=== PATIENT | male | born 1970 | race Two or more races ===

== ENCOUNTER 2020-11-27 21:53 | Inpatient (IN) | payer MEDICAID, OTHER ==
[~2020-11-27] VITALS: Ht 172.7 cm; Wt 85.8 kg
[2020-11-27] MEDS ORDERED: LABETALOL HCL 5 MG/ML 4ML SYRINGE IV ONE (22:15)
[2020-11-27] MEDS ORDERED: ASPirin 81 mg TAB PO ONE ×3 (22:15→23:15)
[2020-11-27 22:33] LABS: Basophils # (auto) 0 10 ^3/uL (0-0.2); Basophils % (auto) 0.4 % (0.0-2.0); Eosinophils # (auto) 0.2 10 ^3/uL (0-0.8); Eosinophils % (auto) 1.5 % (0.0-7.0); Hematocrit 48.4 % (41.0-53.0); Hemoglobin 16.6 g/dL (13.5-17.5); Lymphocytes # (auto) 3.4 10 ^3/uL (0.4-5.4); Mean Corpuscular Hemoglobin 31.4 pg (28.0-32.0); Mean Corpuscular Hgb Conc. 34.4 g/dL (32.0-36.0); Mean Corpuscular Volume 91.4 fL (80.0-100.0); Monocytes # (auto) 0.9 10 ^3/uL (0-1.3); Monocytes % (auto) 8.8 % (0.0-12.0); Neutrophils # (auto) 5.8 10 ^3/uL (1.6-8.6); Neutrophils % (auto) 56.3 % (37.0-80.0); Nucleated Red Blood Cells % 0.1 %; Red Cell Distribution Width 13.3 % (11.8-14.3); White Blood Cell 10.4 10^3/uL (4.4-10.8)
[2020-11-27 22:47] LABS: INR 1.08 (0.9-1.15); Partial Thromboplastin Time 26.9 sec (23.0-31.2)
[2020-11-27 22:52] LABS: Calcium 9.1 mg/dL (8.5-10.1); Potassium 3.8 mmol/L (3.5-5.1)
[2020-11-27 22:56] LABS: Bilirubin, Total 0.8 mg/dL (0.2-1.0); Total Protein 7.6 g/dL (6.4-8.2)
[2020-11-27] MEDS ORDERED: CLOPIDOGREL BISULFATE 75 MG TAB PO ONE (23:15)
[2020-11-27] MEDS ORDERED: CLOPIDOGREL 300 MG TAB ONE (23:22)
[2020-11-27] MEDS ORDERED: ENOXAPARIN SOD 100 MG/1 ML SYRINGE SC SCH (23:30)
[2020-11-28 00:33] LABS: Urine Bacteria NONE SEEN /hpf (None Seen); Urine Blood Negative /uL (Negative); Urine Hyaline Cast FEW /lpf (0 - 2); Urine Mucus FEW (None Seen); Urine Specific Gravity 1.039 (1.001-1.035); Urine WBC 1 /hpf (0 - 3)
[2020-11-28] MEDS ORDERED: ONDANSETRON HCL 4 MG/2 ML VIAL IV PRN (03:45)
[2020-11-28] MEDS ORDERED: METOPROLOL TARTRATE 25 MG TAB PO ONE (03:45)
[2020-11-28] MEDS ORDERED: MORPHINE SULFATE INJECTION 2 MG/ML SYRG IV PRN (03:45)
[2020-11-28] MEDS ORDERED: DEXTROSE (50%) 50ML SYRG IV PRN (03:45)
[2020-11-28] MEDS ORDERED: NITROGLYCERIN 0.4 MG SL TAB SL PRN (03:45)
[2020-11-28] MEDS ORDERED: IOHEXOL 350 MG/ML 100ML IJ ONE (03:52)
[2020-11-28] MEDS: ACCU-CHEK COMFORT CURVE STRIP VI SCH ×4 (06:12→23:42)
[2020-11-28] MEDS: InsuLIN REG 1unit/0.01ml Soln (100units/ml) SC SCH ×4 (06:12→23:54)
[2020-11-28] MEDS ORDERED: dilTIAZem 25 MG/5 ML VIAL IV ONE (06:45)
[2020-11-28] MEDS ORDERED: cloNIDine HCL 0.1 MG TAB PO PRN (07:15)
[2020-11-28] MEDS: METOPROLOL TARTRATE 25 MG TAB PO SCH ×3 (09:23→22:03)
[2020-11-28] MEDS ORDERED: ENOXAPARIN SOD 40 MG/0.4 ML SYRINGE SC SCH (10:00)
[2020-11-28] MEDS: ASPirin 81 mg TAB PO SCH (11:43)
[2020-11-28] MEDS: FAMOTIDINE 20 MG TAB PO SCH ×2 (11:44→22:03)
[2020-11-28] MEDS ORDERED: FUROSEMIDE 20 MG/2 ML VIAL IV ONE (14:15)
[2020-11-28] MEDS: ENOXAPARIN SOD 80 MG/0.8ML SYRINGE SC SCH (21:55)
[2020-11-28 22:00] VITALS: BP 129/95
[2020-11-28] MEDS ORDERED: METOPROLOL TARTRATE 25 MG TAB PO SCH (22:00)
[2020-11-28] MEDS: ATORVASTATIN 20 MG TAB PO SCH (22:03)
[2020-11-29] MEDS ORDERED: DIGOXIN (250MCG/ML) 2 ML AMPULE IV ONE (00:15)
[2020-11-29 04:53] VITALS: BP 150/95
[2020-11-29] MEDS: ACCU-CHEK COMFORT CURVE STRIP VI SCH ×3 (05:45→18:13)
[2020-11-29] MEDS: InsuLIN REG 1unit/0.01ml Soln (100units/ml) SC SCH ×3 (05:45→18:14)
[2020-11-29 07:10] LABS: Basophils # (auto) 0.1 10 ^3/uL (0-0.2); Basophils % (auto) 0.5 % (0.0-2.0); Eosinophils # (auto) 0.1 10 ^3/uL (0-0.8); Eosinophils % (auto) 1.5 % (0.0-7.0); Hematocrit 47.6 % (41.0-53.0); Hemoglobin 16.5 g/dL (13.5-17.5); Lymphocytes # (auto) 2.5 10 ^3/uL (0.4-5.4); Lymphocytes % (auto) 25.6 % (10.0-50.0); Mean Corpuscular Hemoglobin 31.4 pg (28.0-32.0); Mean Corpuscular Hgb Conc. 34.7 g/dL (32.0-36.0); Mean Corpuscular Volume 90.4 fL (80.0-100.0); Neutrophils # (auto) 6.1 10 ^3/uL (1.6-8.6); Neutrophils % (auto) 62.4 % (37.0-80.0); Nucleated Red Blood Cells % 0.1 %; Red Blood Cells 5.26 10^6/uL (4.5-5.90); Red Cell Distribution Width 13.2 % (11.8-14.3); White Blood Cell 9.7 10^3/uL (4.4-10.8)
[2020-11-29 07:31] LABS: Potassium 3.4 mmol/L (3.5-5.1)
[2020-11-29 07:38] LABS: Albumin 3.5 g/dL (3.4-5.0); BUN/Creatinine Ratio 25.3; Bilirubin, Total 1.2 mg/dL (0.2-1.0); Calcium 8.6 mg/dL (8.5-10.1); Total Protein 6.9 g/dL (6.4-8.2)
[2020-11-29 08:41] VITALS: BP 157/98
[2020-11-29] MEDS: FAMOTIDINE 20 MG TAB PO SCH ×2 (10:00→21:43)
[2020-11-29] MEDS: METOPROLOL TARTRATE 25 MG TAB PO SCH (10:00)
[2020-11-29] MEDS: ASPirin 81 mg TAB PO SCH (10:00)
[2020-11-29] MEDS: ENOXAPARIN SOD 80 MG/0.8ML SYRINGE SC SCH (10:00)
[2020-11-29] MEDS ORDERED: POTASSIUM EFFERVESENT TAB 25 MEQ GT ONE (11:00)
[2020-11-29] MEDS ORDERED: MIDAZOLAM HCL 2MG/2ML 2ml VIAL (1mg/ml) ONE ×2 (11:49→12:23)
[2020-11-29] MEDS ORDERED: AMIODARONE HCL (50 MG/ ML) 3 ML VIAL IV ONE (11:59)
[2020-11-29] MEDS ORDERED: SODIUM CHL 0.9% 0 ML ONE (11:59)
[2020-11-29] MEDS ORDERED: ANGIOMAX 250 MG VIAL IV ONE (12:22)
[2020-11-29] MEDS ORDERED: fentaNYL CITRATE 100 MCG/2 ML VL ONE (12:23)
[2020-11-29] MEDS ORDERED: LIDOCAINE 1% HCL (LOCAL ANESTH.) INJ 20ML MDV IJ ONE (13:33)
[2020-11-29] MEDS ORDERED: METOPROLOL SUCCINATE XL 50 MG TAB PO ONE (14:00)
[2020-11-29] MEDS: FUROSEMIDE 20 MG/2 ML VIAL IV SCH (16:17)
[2020-11-29 16:52] VITALS: BP 123/90
[2020-11-29] MEDS ORDERED: RIVAROXABAN 20 MG TAB PO SCH (18:00)
[2020-11-29] MEDS: AMIODARONE HCL 200 MG TAB PO SCH (21:42)
[2020-11-29] MEDS: ATORVASTATIN 20 MG TAB PO SCH (21:43)
[2020-11-29 22:00] VITALS: BP 135/89
[2020-11-30] MEDS: InsuLIN REG 1unit/0.01ml Soln (100units/ml) SC SCH ×3 (00:38→12:41)
[2020-11-30] MEDS: ACCU-CHEK COMFORT CURVE STRIP VI SCH ×3 (00:42→12:00)
[2020-11-30 05:00] VITALS: BP 147/86
[2020-11-30 05:42] LABS: Basophils # (auto) 0.1 10 ^3/uL (0-0.2); Basophils % (auto) 0.6 % (0.0-2.0); Eosinophils # (auto) 0.1 10 ^3/uL (0-0.8); Eosinophils % (auto) 1.2 % (0.0-7.0); Hematocrit 46.4 % (41.0-53.0); Hemoglobin 16.1 g/dL (13.5-17.5); Lymphocytes # (auto) 2.3 10 ^3/uL (0.4-5.4); Lymphocytes % (auto) 19.4 % (10.0-50.0); Mean Corpuscular Hemoglobin 31.5 pg (28.0-32.0); Mean Corpuscular Hgb Conc. 34.7 g/dL (32.0-36.0); Mean Corpuscular Volume 90.7 fL (80.0-100.0); Monocytes # (auto) 1.3 10 ^3/uL (0-1.3); Monocytes % (auto) 11.2 % (0.0-12.0); Neutrophils # (auto) 7.9 10 ^3/uL (1.6-8.6); Neutrophils % (auto) 67.6 % (37.0-80.0); Nucleated Red Blood Cells % 0.1 %; Red Blood Cells 5.12 10^6/uL (4.5-5.90); Red Cell Distribution Width 13.1 % (11.8-14.3); White Blood Cell 11.7 10^3/uL (4.4-10.8)
[2020-11-30 06:00] LABS: BUN/Creatinine Ratio 24.6; Calcium 8.5 mg/dL (8.5-10.1); Potassium 3.4 mmol/L (3.5-5.1)
[2020-11-30 08:00] VITALS: BP 150/104
[2020-11-30 09:00] VITALS: BP 150/104
[2020-11-30] MEDS: ASPirin 81 mg TAB PO SCH (09:29)
[2020-11-30] MEDS: FUROSEMIDE 20 MG/2 ML VIAL IV SCH (09:29)
[2020-11-30] MEDS: FAMOTIDINE 20 MG TAB PO SCH (09:30)
[2020-11-30] MEDS: AMIODARONE HCL 200 MG TAB PO SCH (09:30)
[2020-11-30] MEDS ORDERED: POTASSIUM EFFERVESENT TAB 25 MEQ GT SCH (10:00)
[2020-11-30] MEDS ORDERED: METOPROLOL SUCCINATE XL 50 MG TAB PO SCH (10:00)
[2020-11-30 12:36] VITALS: BP 136/103
[2020-11-30] MEDS ORDERED: FURO1TAB33 PO (12:54)
[2020-11-30] MEDS ORDERED: ASPI1CHW15 PO (12:54)
[2020-11-30] MEDS ORDERED: RIV20T PO (12:54)
[2020-11-30] MEDS ORDERED: METO-6 PO (12:54)
[2020-11-30] MEDS ORDERED: ATOR20TA50 PO (12:54)
[2020-11-30 14:43] VITALS: BP 136/103
[2020-12-01] MEDS ORDERED: ASPirin 81 mg TAB PO SCH (10:00)
[2021-04-09] MEDS ORDERED: AMIO200T33 PO (15:54)
[2021-04-09] MEDS ORDERED: DAPA1TAB4 PO (15:54)
[2021-04-09] MEDS ORDERED: ASPI-543 PO (15:54)
[2021-04-09] MEDS ORDERED: POTA-220 PO (16:03)
[2021-04-09] MEDS ORDERED: RIV20T PO (16:03)
== END 2020-11-30 16:30 | disposition home or self-care (01) | DRG 192 ==
LOC: ER 21:53 → TELE-EAST 21:53 → TELE 11-28 03:40 → TELE-EAST 11-28 20:53
PROVIDERS: ADMIT Nurse Practitioner; ATTEND Internal Medicine Pulmonary Disease
PROC: 4A023N7 Measurement of Cardiac Sampling and Pressure, Left Heart, Percutaneous Approach (ICD-10-PCS; principal; 2020-11-29)
PROC: 5A2204Z Restoration of Cardiac Rhythm, Single (ICD-10-PCS; 2020-11-29)
PROC: B2111ZZ Fluoroscopy of Multiple Coronary Arteries using Low Osmolar Contrast (ICD-10-PCS; 2020-11-29)
PROC: B2151ZZ Fluoroscopy of Left Heart using Low Osmolar Contrast (ICD-10-PCS; 2020-11-29)
DX: I50.23 Acute on chronic systolic (congestive) heart failure (principal); I21.4 Non-ST elevation (NSTEMI) myocardial infarction; J96.01 Acute respiratory failure with hypoxia; I48.91 Unspecified atrial fibrillation; E11.9 Type 2 diabetes mellitus without complications; Z20.822 Contact with and (suspected) exposure to COVID-19; I42.0 Dilated cardiomyopathy
CPT/HCPCS: 36415; 71045; 71275; 80048; 80053; 81001; 82962; 83880; 84443; 84484; 85025; 85379; 85610; 85730; 87426; 93005; 93306; 93458; 96372; 96374; 96375; 99152; 99291; G0378; J1815; J2001; J2250; J3490

== ENCOUNTER 2020-11-30 22:35 | Inpatient (IN) | payer MEDICAID ==
[~2020-11-30] VITALS: Ht 172.7 cm; Wt 93.2 kg
[~2020-11-30 22:35] MED LIST: ASPI1CHW15 PO; ATOR20TA50 PO; FURO1TAB33 PO; METO-6 PO; RIV20T PO
[2020-11-30 23:51] LABS: Basophils # (auto) 0.1 10 ^3/uL (0-0.2); Basophils % (auto) 0.6 % (0.0-2.0); Eosinophils # (auto) 0.1 10 ^3/uL (0-0.8); Eosinophils % (auto) 1.2 % (0.0-7.0); Hematocrit 44.4 % (41.0-53.0); Hemoglobin 15.2 g/dL (13.5-17.5); Lymphocytes # (auto) 2.7 10 ^3/uL (0.4-5.4); Mean Corpuscular Hemoglobin 31.1 pg (28.0-32.0); Mean Corpuscular Hgb Conc. 34.3 g/dL (32.0-36.0); Mean Corpuscular Volume 90.8 fL (80.0-100.0); Monocytes # (auto) 1.5 10 ^3/uL (0-1.3); Neutrophils # (auto) 7.4 10 ^3/uL (1.6-8.6); Neutrophils % (auto) 62.2 % (37.0-80.0); Nucleated Red Blood Cells % 0.1 %; Platelet Count (auto) 109 10^3/uL (140-450); Red Blood Cells 4.89 10^6/uL (4.5-5.90); Red Cell Distribution Width 13.5 % (11.8-14.3); White Blood Cell 11.9 10^3/uL (4.4-10.8)
[2020-12-01 00:06] LABS: Albumin 3.4 g/dL (3.4-5.0); Calcium 8.7 mg/dL (8.5-10.1); Potassium 3.5 mmol/L (3.5-5.1)
[2020-12-01 00:08] LABS: INR 1.46 (0.9-1.15)
[2020-12-01 00:13] LABS: BUN/Creatinine Ratio 21.3; Bilirubin, Total 0.9 mg/dL (0.2-1.0); Total Protein 6.9 g/dL (6.4-8.2)
[2020-12-01] MEDS ORDERED: ASPirin 325 MG TAB PO ONE (01:00)
[2020-12-01] MEDS ORDERED: ENOXAPARIN SOD 100 MG/1 ML SYRINGE SC ONE (01:00)
[2020-12-01] MEDS ORDERED: DEXTROSE (50%) 50ML SYRG IV PRN (02:30)
[2020-12-01] MEDS ORDERED: DOCUSATE SOD 100 MG CAP PO PRN (02:45)
[2020-12-01] MEDS ORDERED: ONDANSETRON HCL 4 MG/2 ML VIAL IV PRN (02:45)
[2020-12-01] MEDS ORDERED: TEMAZEPAM 15 MG CAP PO PRN (02:45)
[2020-12-01] MEDS ORDERED: ACETAMINOPHEN 325 MG TAB PO PRN (02:45)
[2020-12-01] MEDS ORDERED: MORPHINE SULFATE 4 MG/ML SYR/VIAL IV PRN (02:45)
[2020-12-01] MEDS ORDERED: MORPHINE SULF INJ 2 MG/ML SYRINGE 1ML IV PRN (02:45)
[2020-12-01] MEDS ORDERED: NITROGLYCERIN 0.4 MG SL TAB SL PRN (02:45)
[2020-12-01] MEDS ORDERED: hydrALAZINE HCL 20 MG/ML VL IV PRN (03:45)
[2020-12-01 05:00] VITALS: BP 128/106
[2020-12-01] MEDS: ACCU-CHEK COMFORT CURVE STRIP VI SCH ×4 (06:41→23:25)
[2020-12-01] MEDS: InsuLIN REG 1unit/0.01ml Soln (100units/ml) SC SCH ×4 (06:43→23:24)
[2020-12-01 08:42] LABS: Basophils # (auto) 0 10 ^3/uL (0-0.2); Basophils % (auto) 0.3 % (0.0-2.0); Eosinophils # (auto) 0.1 10 ^3/uL (0-0.8); Eosinophils % (auto) 0.4 % (0.0-7.0); Hematocrit 45.7 % (41.0-53.0); Hemoglobin 15.6 g/dL (13.5-17.5); Lymphocytes # (auto) 1.5 10 ^3/uL (0.4-5.4); Lymphocytes % (auto) 12.5 % (10.0-50.0); Mean Corpuscular Hemoglobin 30.7 pg (28.0-32.0); Mean Corpuscular Hgb Conc. 34.1 g/dL (32.0-36.0); Mean Corpuscular Volume 90.2 fL (80.0-100.0); Monocytes # (auto) 1.4 10 ^3/uL (0-1.3); Monocytes % (auto) 11.9 % (0.0-12.0); Neutrophils # (auto) 8.7 10 ^3/uL (1.6-8.6); Neutrophils % (auto) 74.9 % (37.0-80.0); Nucleated Red Blood Cells % 0.1 %; Platelet Count (auto) 108 10^3/uL (140-450); Red Blood Cells 5.07 10^6/uL (4.5-5.90); Red Cell Distribution Width 13.1 % (11.8-14.3); White Blood Cell 11.6 10^3/uL (4.4-10.8)
[2020-12-01 08:59] LABS: Albumin 3.2 g/dL (3.4-5.0); Calcium 8.8 mg/dL (8.5-10.1); Potassium 4.1 mmol/L (3.5-5.1)
[2020-12-01 09:00] VITALS: BP 127/89
[2020-12-01 09:04] LABS: BUN/Creatinine Ratio 20.8; Bilirubin, Total 1.2 mg/dL (0.2-1.0); Total Protein 7.1 g/dL (6.4-8.2)
[2020-12-01] MEDS ORDERED: METOPROLOL TARTRATE 25 MG TAB PO SCH (10:00)
[2020-12-01] MEDS ORDERED: ASPirin 81 mg TAB PO SCH (10:00)
[2020-12-01] MEDS ORDERED: ENOXAPARIN SOD 40 MG/0.4 ML SYRINGE SC SCH (10:00)
[2020-12-01] MEDS: ASCORBIC ACID 500 MG TAB PO SCH ×2 (10:36→21:32)
[2020-12-01] MEDS: MULTIPLE VITAMIN TAB PO SCH (10:36)
[2020-12-01] MEDS: FAMOTIDINE (10MG/ML) 2ML VL IV SCH ×2 (10:37→21:31)
[2020-12-01] MEDS: CARVEDILOL 12.5 MG TAB PO SCH ×2 (10:38→21:32)
[2020-12-01] MEDS: HYDROcodone-ACET 5/325MG TAB PO PRN ×2 (10:52→21:33)
[2020-12-01] MEDS: ZINC SULFATE 220mg CAP or TAB PO SCH (10:53)
[2020-12-01 13:00] VITALS: BP 128/87
[2020-12-01 17:00] VITALS: BP 120/86
[2020-12-01 17:55] LABS: Urine Amorphous Crystal MOD /hpf (None Seen); Urine Bacteria MANY /hpf (None Seen); Urine Blood Negative /uL (Negative); Urine Mucus FEW (None Seen); Urine Specific Gravity 1.022 (1.001-1.035); Urine WBC 46 /hpf (0 - 3)
[2020-12-01] MEDS: AMIODARONE HCL 200 MG TAB PO SCH (21:31)
[2020-12-01] MEDS: ATORVASTATIN 20 MG TAB PO SCH (21:32)
[2020-12-01 22:00] VITALS: BP 131/98
[2020-12-02 05:00] VITALS: BP 129/80
[2020-12-02] MEDS: HYDROcodone-ACET 5/325MG TAB PO PRN (06:09)
[2020-12-02] MEDS: ACCU-CHEK COMFORT CURVE STRIP VI SCH ×4 (06:10→21:30)
[2020-12-02] MEDS: InsuLIN REG 1unit/0.01ml Soln (100units/ml) SC SCH ×4 (06:11→21:29)
[2020-12-02 09:00] VITALS: BP 132/87
[2020-12-02] MEDS: APIXABAN 5 MG TAB PO SCH ×2 (10:36→21:30)
[2020-12-02] MEDS: FAMOTIDINE (10MG/ML) 2ML VL IV SCH ×2 (10:36→21:30)
[2020-12-02] MEDS: ZINC SULFATE 220mg CAP or TAB PO SCH (10:36)
[2020-12-02] MEDS: CARVEDILOL 12.5 MG TAB PO SCH ×2 (10:36→22:00)
[2020-12-02] MEDS: AMIODARONE HCL 200 MG TAB PO SCH ×2 (10:36→21:30)
[2020-12-02] MEDS: ASCORBIC ACID 500 MG TAB PO SCH ×2 (10:37→21:30)
[2020-12-02] MEDS: MULTIPLE VITAMIN TAB PO SCH (10:37)
[2020-12-02] MEDS: FUROSEMIDE 20 MG TAB PO SCH (10:37)
[2020-12-02 13:00] VITALS: BP 121/78
[2020-12-02 16:47] VITALS: BP 117/76
[2020-12-02] MEDS: ATORVASTATIN 20 MG TAB PO SCH (21:30)
[2020-12-02 22:00] VITALS: BP 113/96
[2020-12-03 05:00] VITALS: BP 124/80
[2020-12-03] MEDS: ACCU-CHEK COMFORT CURVE STRIP VI SCH ×4 (06:13→22:00)
[2020-12-03] MEDS: InsuLIN REG 1unit/0.01ml Soln (100units/ml) SC SCH ×4 (06:14→22:00)
[2020-12-03 07:40] LABS: Basophils # (auto) 0.1 10 ^3/uL (0-0.2); Basophils % (auto) 0.6 % (0.0-2.0); Eosinophils # (auto) 0.1 10 ^3/uL (0-0.8); Eosinophils % (auto) 0.8 % (0.0-7.0); Hematocrit 43.4 % (41.0-53.0); Lymphocytes # (auto) 2.1 10 ^3/uL (0.4-5.4); Lymphocytes % (auto) 15.9 % (10.0-50.0); Mean Corpuscular Hemoglobin 31.4 pg (28.0-32.0); Mean Corpuscular Hgb Conc. 34.7 g/dL (32.0-36.0); Mean Corpuscular Volume 90.4 fL (80.0-100.0); Monocytes # (auto) 1.8 10 ^3/uL (0-1.3); Monocytes % (auto) 13.9 % (0.0-12.0); Neutrophils # (auto) 9.1 10 ^3/uL (1.6-8.6); Neutrophils % (auto) 68.8 % (37.0-80.0); Nucleated Red Blood Cells % 0.4 %; Platelet Count (auto) 111 10^3/uL (140-450); Red Cell Distribution Width 12.9 % (11.8-14.3); White Blood Cell 13.2 10^3/uL (4.4-10.8)
[2020-12-03 08:02] LABS: Albumin 3.2 g/dL (3.4-5.0); Calcium 8.4 mg/dL (8.5-10.1); Potassium 3.7 mmol/L (3.5-5.1)
[2020-12-03 08:09] LABS: BUN/Creatinine Ratio 16.7; Bilirubin, Total 1.3 mg/dL (0.2-1.0)
[2020-12-03 09:00] VITALS: BP 115/76
[2020-12-03] MEDS: AMIODARONE HCL 200 MG TAB PO SCH ×2 (10:05→22:18)
[2020-12-03] MEDS: ZINC SULFATE 220mg CAP or TAB PO SCH (10:05)
[2020-12-03] MEDS: FAMOTIDINE (10MG/ML) 2ML VL IV SCH (10:05)
[2020-12-03] MEDS: CARVEDILOL 12.5 MG TAB PO SCH ×2 (10:06→22:19)
[2020-12-03] MEDS: MULTIPLE VITAMIN TAB PO SCH (10:06)
[2020-12-03] MEDS: APIXABAN 5 MG TAB PO SCH ×2 (10:06→22:00)
[2020-12-03] MEDS: FUROSEMIDE 20 MG TAB PO SCH (10:06)
[2020-12-03] MEDS: ASCORBIC ACID 500 MG TAB PO SCH (10:06)
[2020-12-03 13:00] VITALS: BP 114/77
[2020-12-03 17:00] VITALS: BP 157/73
[2020-12-03 22:00] VITALS: BP 125/89
[2020-12-03] MEDS: ATORVASTATIN 20 MG TAB PO SCH (22:00)
[2020-12-04] MEDS ORDERED: SODIUM CHLORIDE 0.9% 500 ML IV ONE (01:30)
[2020-12-04 05:00] VITALS: BP 109/76
[2020-12-04] MEDS: ACCU-CHEK COMFORT CURVE STRIP VI SCH ×2 (06:35→11:56)
[2020-12-04] MEDS: InsuLIN REG 1unit/0.01ml Soln (100units/ml) SC SCH ×2 (06:35→12:03)
[2020-12-04 07:45] VITALS: BP 113/84
[2020-12-04 09:00] VITALS: BP 113/84
[2020-12-04] MEDS ORDERED: DIGOXIN 0.125 MG TAB PO SCH (10:00)
[2020-12-04] MEDS: MULTIPLE VITAMIN TAB PO SCH (10:29)
[2020-12-04] MEDS: APIXABAN 5 MG TAB PO SCH (10:29)
[2020-12-04] MEDS: AMIODARONE HCL 200 MG TAB PO SCH (10:30)
[2020-12-04] MEDS: FUROSEMIDE 20 MG TAB PO SCH (10:30)
[2020-12-04] MEDS: CARVEDILOL 12.5 MG TAB PO SCH (10:30)
[2020-12-04 13:00] VITALS: BP 123/80
[2020-12-04 13:31] VITALS: BP 123/80
== END 2020-12-04 16:45 | disposition home or self-care (01) | DRG 194 ==
LOC: ER 22:35 → TELE 12-01 02:42 → TELE-WESTW 12-01 04:37 → UNDODISIN 12-01 13:55
PROVIDERS: ADMIT Nurse Practitioner Family; ATTEND Internal Medicine
DX: I11.0 Hypertensive heart disease with heart failure (principal); I21.4 Non-ST elevation (NSTEMI) myocardial infarction; D68.69 Other thrombophilia; E11.21 Type 2 diabetes mellitus with diabetic nephropathy; I48.92 Unspecified atrial flutter; E11.65 Type 2 diabetes mellitus with hyperglycemia; R65.10 Systemic inflammatory response syndrome (SIRS) of non-infectious origin without acute organ dysfunction; I42.0 Dilated cardiomyopathy; I48.91 Unspecified atrial fibrillation; I50.23 Acute on chronic systolic (congestive) heart failure; D47.3 Essential (hemorrhagic) thrombocythemia; E66.9 Obesity, unspecified; E78.5 Hyperlipidemia, unspecified; Z68.31 Body mass index [BMI] 31.0-31.9, adult; Z79.899 Other long term (current) drug therapy; Z95.810 Presence of automatic (implantable) cardiac defibrillator; Z20.822 Contact with and (suspected) exposure to COVID-19
CPT/HCPCS: 36415; 73020; 80053; 80061; 81001; 82962; 83036; 83735; 84443; 84484; 85025; 85610; 87081; 87426; 93005; 96372; 96374; G0378; J1815; J3490

== ENCOUNTER 2020-12-28 05:42 | Inpatient (IN) | payer MEDICAID ==
[~2020-12-28] VITALS: Ht 167.6 cm; Wt 73.0 kg
[2020-12-28 06:45] LABS: Basophils # (auto) 0.1 10 ^3/uL (0-0.2); Basophils % (auto) 0.6 % (0.0-2.0); Eosinophils # (auto) 0.2 10 ^3/uL (0-0.8); Eosinophils % (auto) 1.5 % (0.0-7.0); Hematocrit 44.7 % (41.0-53.0); Hemoglobin 15.8 g/dL (13.5-17.5); Lymphocytes # (auto) 2.1 10 ^3/uL (0.4-5.4); Lymphocytes % (auto) 16.9 % (10.0-50.0); Mean Corpuscular Hemoglobin 31.3 pg (28.0-32.0); Mean Corpuscular Hgb Conc. 35.3 g/dL (32.0-36.0); Mean Corpuscular Volume 88.7 fL (80.0-100.0); Monocytes # (auto) 1.2 10 ^3/uL (0-1.3); Neutrophils # (auto) 8.9 10 ^3/uL (1.6-8.6); Nucleated Red Blood Cells % 0.1 %; Red Blood Cells 5.04 10^6/uL (4.5-5.90); Red Cell Distribution Width 13.5 % (11.8-14.3); White Blood Cell 12.5 10^3/uL (4.4-10.8)
[2020-12-28 07:02] LABS: Calcium 8.6 mg/dL (8.5-10.1); Potassium 4.1 mmol/L (3.5-5.1)
[2020-12-28 07:07] LABS: BUN/Creatinine Ratio 18.2; Bilirubin, Total 0.6 mg/dL (0.2-1.0); Total Protein 7.5 g/dL (6.4-8.2)
[2020-12-28] MEDS ORDERED: cloNIDine HCL 0.1 MG TAB PO ONE (10:00)
[2020-12-28 10:11] LABS: INR 2.04 (0.9-1.15); Partial Thromboplastin Time 43.9 sec (23.0-31.2)
[2020-12-28] MEDS ORDERED: ENOXAPARIN SOD 80 MG/0.8ML SYRINGE SC ONE (10:45)
[2020-12-28] MEDS ORDERED: ASPirin 81 mg TAB PO ONE (10:45)
[2020-12-28] MEDS ORDERED: MORPHINE SULFATE INJECTION 2 MG/ML SYRG IV PRN ×2 (11:15→12:00)
[2020-12-28] MEDS ORDERED: NITROGLYCERIN 0.4 MG SL TAB SL PRN (11:15)
[2020-12-28] MEDS ORDERED: traMADol HCL 50 MG TAB PO PRN (12:00)
[2020-12-28] MEDS ORDERED: ONDANSETRON HCL 4 MG/2 ML VIAL IV PRN (12:00)
[2020-12-28] MEDS ORDERED: ACETAMINOPHEN 500 MG TAB PO PRN (12:00)
[2020-12-28] MEDS ORDERED: LACTULOSE 20Gm/30ML SOLN PO PRN (12:00)
[2020-12-28] MEDS ORDERED: DEXTROSE (50%) 50ML SYRG IV PRN (12:00)
[2020-12-28 12:29] LABS: CRP High Sensitivity 0.59 mg/dL (< 0.3)
[2020-12-28] MEDS: SODIUM CHLOR 0.9% PF (SALINE LOCK) 10ML VIAL/SYR IV SCH ×2 (14:06→22:23)
[2020-12-28] MEDS ORDERED: AMIO200T4 PO (16:47)
[2020-12-28] MEDS ORDERED: DIGO0.12 PO (16:47)
[2020-12-28] MEDS ORDERED: METF-370 PO (16:47)
[2020-12-28] MEDS ORDERED: POTA-180 PO (16:47)
[2020-12-28] MEDS ORDERED: LISI-275 PO (16:47)
[2020-12-28] MEDS ORDERED: METO-6 PO (17:00)
[2020-12-28] MEDS ORDERED: ASPI1CHW15 PO (17:00)
[2020-12-28] MEDS: ACCU-CHEK COMFORT CURVE STRIP VI SCH ×2 (17:16→22:24)
[2020-12-28] MEDS: InsuLIN REG 1unit/0.01ml Soln (100units/ml) SC SCH ×2 (17:20→22:00)
[2020-12-28 17:30] VITALS: BP 132/83
[2020-12-28 22:00] VITALS: BP 144/88
[2020-12-28] MEDS: ATORVASTATIN 20 MG TAB PO SCH (22:23)
[2020-12-28] MEDS: METOPROLOL TARTRATE 25 MG TAB PO SCH (22:24)
[2020-12-29 05:00] VITALS: BP 158/88
[2020-12-29 06:06] LABS: Basophils # (auto) 0.1 10 ^3/uL (0-0.2); Basophils % (auto) 0.7 % (0.0-2.0); Eosinophils # (auto) 0.1 10 ^3/uL (0-0.8); Eosinophils % (auto) 1.4 % (0.0-7.0); Hematocrit 46.5 % (41.0-53.0); Hemoglobin 16.7 g/dL (13.5-17.5); Lymphocytes # (auto) 2.5 10 ^3/uL (0.4-5.4); Lymphocytes % (auto) 23.7 % (10.0-50.0); Mean Corpuscular Hemoglobin 31.5 pg (28.0-32.0); Mean Corpuscular Hgb Conc. 35.9 g/dL (32.0-36.0); Mean Corpuscular Volume 87.8 fL (80.0-100.0); Monocytes # (auto) 1.3 10 ^3/uL (0-1.3); Monocytes % (auto) 12.7 % (0.0-12.0); Neutrophils # (auto) 6.5 10 ^3/uL (1.6-8.6); Neutrophils % (auto) 61.5 % (37.0-80.0); Nucleated Red Blood Cells % 0.1 %; White Blood Cell 10.6 10^3/uL (4.4-10.8)
[2020-12-29 06:18] LABS: INR 1.13 (0.9-1.15); Partial Thromboplastin Time 31.9 sec (23.0-31.2)
[2020-12-29 06:22] LABS: Albumin 3.5 g/dL (3.4-5.0); Calcium 9.1 mg/dL (8.5-10.1); Potassium 3.9 mmol/L (3.5-5.1)
[2020-12-29] MEDS: SODIUM CHLOR 0.9% PF (SALINE LOCK) 10ML VIAL/SYR IV SCH ×3 (06:22→22:00)
[2020-12-29] MEDS: ACCU-CHEK COMFORT CURVE STRIP VI SCH ×4 (06:22→22:22)
[2020-12-29 06:28] LABS: BUN/Creatinine Ratio 15.5; Bilirubin, Total 0.9 mg/dL (0.2-1.0)
[2020-12-29] MEDS: InsuLIN REG 1unit/0.01ml Soln (100units/ml) SC SCH ×4 (06:31→22:18)
[2020-12-29 08:00] VITALS: BP 158/88
[2020-12-29 09:19] VITALS: BP 144/93
[2020-12-29] MEDS: ASPirin 81 mg TAB PO SCH (09:29)
[2020-12-29] MEDS: METOPROLOL TARTRATE 25 MG TAB PO SCH ×2 (09:30→22:22)
[2020-12-29] MEDS: NITROGLYCERIN 0.2MG/HR TOPICAL PATCH TD SCH (09:30)
[2020-12-29] MEDS ORDERED: ENALAPRIL MALEATE 10 MG TAB PO SCH (10:00)
[2020-12-29] MEDS ORDERED: AMIO200T33 PO (11:04)
[2020-12-29] MEDS ORDERED: TROLAMINE SALICYLATE 10% TOP CREAM TOP ONE (12:00)
[2020-12-29] MEDS ORDERED: AMIODARONE HCL 200 MG TAB PO ONE (12:15)
[2020-12-29] MEDS ORDERED: FUROSEMIDE 20 MG TAB PO ONE (12:15)
[2020-12-29] MEDS ORDERED: DIGOXIN 0.125 MG TAB PO ONE (12:15)
[2020-12-29] MEDS ORDERED: LISINOPRIL 5 MG TAB PO ONE (12:15)
[2020-12-29 13:00] VITALS: BP 146/96
[2020-12-29] MEDS: TROLAMINE SALICYLATE 10% TOP CREAM TOP SCH ×2 (13:05→22:22)
[2020-12-29 17:28] VITALS: BP 136/91
[2020-12-29] MEDS ORDERED: RIVAROXABAN 20 MG TAB PO SCH (18:00)
[2020-12-29 22:00] VITALS: BP 136/86
[2020-12-29] MEDS: ATORVASTATIN 20 MG TAB PO SCH (22:00)
[2020-12-29] MEDS ORDERED: ATORVASTATIN 20 MG TAB PO SCH (22:00)
[2020-12-30 05:00] VITALS: BP 154/80
[2020-12-30 05:46] LABS: Basophils # (auto) 0.1 10 ^3/uL (0-0.2); Basophils % (auto) 0.5 % (0.0-2.0); Eosinophils # (auto) 0.2 10 ^3/uL (0-0.8); Eosinophils % (auto) 2.1 % (0.0-7.0); Hematocrit 43.6 % (41.0-53.0); Hemoglobin 15.9 g/dL (13.5-17.5); Lymphocytes # (auto) 2.2 10 ^3/uL (0.4-5.4); Lymphocytes % (auto) 20.1 % (10.0-50.0); Mean Corpuscular Hgb Conc. 36.4 g/dL (32.0-36.0); Mean Corpuscular Volume 87.9 fL (80.0-100.0); Monocytes # (auto) 1.4 10 ^3/uL (0-1.3); Monocytes % (auto) 12.4 % (0.0-12.0); Neutrophils # (auto) 7.1 10 ^3/uL (1.6-8.6); Neutrophils % (auto) 64.9 % (37.0-80.0); Nucleated Red Blood Cells % 0.1 %; Red Blood Cells 4.96 10^6/uL (4.5-5.90); Red Cell Distribution Width 12.9 % (11.8-14.3)
[2020-12-30 05:58] LABS: Albumin 3.5 g/dL (3.4-5.0); Calcium 8.6 mg/dL (8.5-10.1); Potassium 3.9 mmol/L (3.5-5.1)
[2020-12-30] MEDS: SODIUM CHLOR 0.9% PF (SALINE LOCK) 10ML VIAL/SYR IV SCH ×2 (06:00→15:21)
[2020-12-30 06:03] LABS: BUN/Creatinine Ratio 21.7; Bilirubin, Total 0.6 mg/dL (0.2-1.0); Total Protein 7.1 g/dL (6.4-8.2)
[2020-12-30] MEDS: InsuLIN REG 1unit/0.01ml Soln (100units/ml) SC SCH ×2 (06:09→12:14)
[2020-12-30] MEDS: ACCU-CHEK COMFORT CURVE STRIP VI SCH ×2 (06:55→12:13)
[2020-12-30 08:00] VITALS: BP 143/73
[2020-12-30 08:36] VITALS: BP 146/101
[2020-12-30] MEDS: ASPirin 81 mg TAB PO SCH (09:20)
[2020-12-30] MEDS: NITROGLYCERIN 0.2MG/HR TOPICAL PATCH TD SCH (09:22)
[2020-12-30] MEDS: METOPROLOL TARTRATE 25 MG TAB PO SCH (09:22)
[2020-12-30] MEDS: TROLAMINE SALICYLATE 10% TOP CREAM TOP SCH (09:23)
[2020-12-30] MEDS ORDERED: DIGOXIN 0.125 MG TAB PO SCH (10:00)
[2020-12-30] MEDS ORDERED: POTASSIUM CHL 20 Meq TABLET PO SCH (10:00)
[2020-12-30] MEDS ORDERED: FUROSEMIDE 20 MG TAB PO SCH (10:00)
[2020-12-30] MEDS ORDERED: AMIODARONE HCL 200 MG TAB PO SCH (10:00)
[2020-12-30] MEDS ORDERED: LISINOPRIL 5 MG TAB PO SCH (10:00)
[2020-12-30 12:50] VITALS: BP 152/101
[2020-12-30 14:22] VITALS: BP 152/101
[2020-12-30] MEDS ORDERED: AZITHROMYCIN 250 MG TAB PO ONE (14:30)
[2021-04-09] MEDS ORDERED: ASPI-543 PO (15:54)
[2021-04-09] MEDS ORDERED: AMIO200T33 PO (15:54)
[2021-04-09] MEDS ORDERED: DAPA1TAB4 PO (15:54)
[2021-04-09] MEDS ORDERED: POTA-220 PO (16:03)
[2021-04-09] MEDS ORDERED: RIV20T PO (16:03)
== END 2020-12-30 15:36 | disposition home or self-care (01) | DRG 194 ==
LOC: ER 05:42 → TELE 11:15 → TELE-EAST 17:10
PROVIDERS: ADMIT Internal Medicine; ATTEND Internal Medicine
DX: I11.0 Hypertensive heart disease with heart failure (principal); I21.A1 Myocardial infarction type 2; D68.69 Other thrombophilia; D68.9 Coagulation defect, unspecified; E11.65 Type 2 diabetes mellitus with hyperglycemia; I50.22 Chronic systolic (congestive) heart failure; M19.012 Primary osteoarthritis, left shoulder; M94.0 Chondrocostal junction syndrome [Tietze]; J20.9 Acute bronchitis, unspecified; E66.9 Obesity, unspecified; I48.0 Paroxysmal atrial fibrillation; Z20.822 Contact with and (suspected) exposure to COVID-19; E78.5 Hyperlipidemia, unspecified; Z83.3 Family history of diabetes mellitus; Z68.28 Body mass index [BMI] 28.0-28.9, adult
CPT/HCPCS: 36415; 71046; 73200; 80053; 80061; 82550; 82962; 83880; 84443; 84484; 85025; 85049; 85610; 85652; 85730; 86141; 87081; 87426; 93005; 96372; 99291; G0378; J1815

== ENCOUNTER → 2021-01-04 | Outpatient (CLI) | payer MEDICAID ==
[~2021-01-04] MED LIST changes: +AMIO200T33 PO; +DIGO0.12 PO; +LISI-275 PO; +METF-370 PO; +POTA-180 PO
[2021-01-04 13:40] LABS: Basophils # (auto) 0.1 10 ^3/uL (0-0.2); Basophils % (auto) 0.7 % (0.0-2.0); Eosinophils # (auto) 0.1 10 ^3/uL (0-0.8); Eosinophils % (auto) 1.1 % (0.0-7.0); Hematocrit 43.3 % (41.0-53.0); Hemoglobin 15.2 g/dL (13.5-17.5); Lymphocytes # (auto) 2.2 10 ^3/uL (0.4-5.4); Lymphocytes % (auto) 21.2 % (10.0-50.0); Mean Corpuscular Hemoglobin 30.9 pg (28.0-32.0); Mean Corpuscular Hgb Conc. 35.2 g/dL (32.0-36.0); Mean Corpuscular Volume 87.9 fL (80.0-100.0); Monocytes # (auto) 0.8 10 ^3/uL (0-1.3); Monocytes % (auto) 8.1 % (0.0-12.0); Neutrophils # (auto) 7.1 10 ^3/uL (1.6-8.6); Neutrophils % (auto) 68.9 % (37.0-80.0); Nucleated Red Blood Cells % 0.1 %; Platelet Count (auto) 134 10^3/uL (140-450); Red Blood Cells 4.93 10^6/uL (4.5-5.90); Red Cell Distribution Width 13.4 % (11.8-14.3); White Blood Cell 10.3 10^3/uL (4.4-10.8)
[2021-01-04 14:06] LABS: Calcium 9.1 mg/dL (8.5-10.1); Potassium 4.1 mmol/L (3.5-5.1)
[2021-01-04 14:10] LABS: BUN/Creatinine Ratio 18.1; Bilirubin, Total 0.5 mg/dL (0.2-1.0); Total Protein 7.8 g/dL (6.4-8.2)
== END | disposition home or self-care (01) ==
LOC: LAB 12:55
PROVIDERS: ATTEND Internal Medicine
DX: E11.9 Type 2 diabetes mellitus without complications (principal); E78.5 Hyperlipidemia, unspecified; R74.8 Abnormal levels of other serum enzymes
CPT/HCPCS: 36415; 80053; 85025; 85049

== ENCOUNTER 2021-04-11 07:47 | Day surgery (SDC) | payer MEDICAID ==
[~2021-04-11] VITALS: Ht 165.1 cm; Wt 80.7 kg
[~2021-04-11 07:47] MED LIST changes: +ASPI-543 PO; -ASPI1CHW15 PO; +DAPA1TAB4 PO; -LISI-275 PO; -POTA-180 PO; +POTA-220 PO
[2021-04-11] MEDS ORDERED: fentaNYL CITRATE 100 MCG/2 ML VL IV ONE (09:30)
[2021-04-11] MEDS ORDERED: diphenhdrAMINE HCL 50 MG/1 ML VL IV ONE (09:30)
[2021-04-11] MEDS ORDERED: MIDAZOLAM HCL 2MG/2ML 2ml VIAL (1mg/ml) IV ONE (09:30)
[2021-04-11] MEDS ORDERED: cloNIDine HCL 0.1 MG TAB PO ONE (10:00)
[2021-04-11] MEDS ORDERED: AMIODARONE HCL (50 MG/ ML) 3 ML VIAL IV ONE (10:30)
[2021-04-11] MEDS ORDERED: AMIODARONE HCL 200 MG TAB PO ONE (10:30)
[2021-04-11] MEDS ORDERED: ONDANSETRON HCL 4 MG/2 ML VIAL IV PRN (11:00)
== END 2021-04-11 11:33 | disposition home or self-care (01) ==
LOC: CATH 07:47
PROVIDERS: ATTEND Internal Medicine Cardiovascular Disease
DX: I48.91 Unspecified atrial fibrillation (principal); I44.4 Left anterior fascicular block; I10 Essential (primary) hypertension; E03.9 Hypothyroidism, unspecified; E78.5 Hyperlipidemia, unspecified; E11.22 Type 2 diabetes mellitus with diabetic chronic kidney disease; I11.0 Hypertensive heart disease with heart failure; I50.9 Heart failure, unspecified; Z83.3 Family history of diabetes mellitus; Z20.822 Contact with and (suspected) exposure to COVID-19; Z83.79 Family history of other diseases of the digestive system; Z98.890 Other specified postprocedural states; Z79.899 Other long term (current) drug therapy
CPT/HCPCS: 92960; J2250; J3010; J7030; U0003

== ENCOUNTER → 2021-08-16 | Outpatient (CLI) | payer MEDICAID | END | disposition home or self-care (01) | LOC: Rad HDHVI 14:43 | PROVIDERS: ATTEND Internal Medicine Cardiovascular Disease | DX: I34.0 Nonrheumatic mitral (valve) insufficiency (principal) | CPT/HCPCS: 93306 ==

== ENCOUNTER 2022-03-17 02:35 | Inpatient (IN) | payer MEDICAID ==
[~2022-03-17] VITALS: Ht 167.6 cm; Wt 79.5 kg
[2022-03-17 03:17] LABS: Basophils # (auto) 0.1 10 ^3/uL (0-0.2); Basophils % (auto) 0.7 % (0.0-2.0); Eosinophils # (auto) 0.2 10 ^3/uL (0-0.8); Hematocrit 47.2 % (41.0-53.0); Hemoglobin 15.6 g/dL (13.5-17.5); Lymphocytes # (auto) 2.8 10 ^3/uL (0.4-5.4); Mean Corpuscular Hemoglobin 29.4 pg (28.0-32.0); Mean Corpuscular Volume 89.1 fL (80.0-100.0); Monocytes % (auto) 10.1 % (0.0-12.0); Neutrophils # (auto) 5.6 10 ^3/uL (1.6-8.6); Neutrophils % (auto) 58.2 % (37.0-80.0); Nucleated Red Blood Cells % 0.1 %; Red Cell Distribution Width 13.5 % (11.8-14.3); White Blood Cell 9.6 10^3/uL (4.4-10.8)
[2022-03-17] MEDS ORDERED: dilTIAZem 25 MG/5 ML VIAL IV ONE ×2 (03:30→04:00)
[2022-03-17 03:36] LABS: Albumin 3.9 g/dL (3.4-5.0); BUN/Creatinine Ratio 24.1; Calcium 8.7 mg/dL (8.5-10.1); Magnesium 1.9 mg/dL (1.6-2.6); Potassium 3.8 mmol/L (3.5-5.1)
[2022-03-17 03:46] LABS: Bilirubin, Total 0.7 mg/dL (0.2-1.0); Total Protein 7.3 g/dL (6.4-8.2)
[2022-03-17] MEDS ORDERED: ASPirin 81 mg TAB PO ONE (04:00)
[2022-03-17] MEDS ORDERED: ENOXAPARIN SOD 100 MG/1 ML SYRINGE SC ONE (04:00)
[2022-03-17] MEDS ORDERED: dilTIAZem 120MG ER CAP PO ONE (04:15)
[2022-03-17] MEDS ORDERED: FUROSEMIDE 20 MG TAB PO ONE (04:45)
[2022-03-17] MEDS ORDERED: NITROGLYCERIN 0.4 MG SL TAB SL PRN (16:00)
[2022-03-17] MEDS ORDERED: ONDANSETRON HCL 4 MG/2 ML VIAL IV PRN (16:00)
[2022-03-17] MEDS ORDERED: MORPHINE SULFATE INJ 2 MG/ml SYRG IV PRN (16:00)
[2022-03-17] MEDS ORDERED: DEXTROSE (50%) 50ML SYRG IV PRN (16:15)
[2022-03-17 17:14] LABS: Cholesterol 129 mg/dL (< 200)
[2022-03-17 17:16] LABS: HDL Cholesterol 30 mg/dL (40-59); LDL Cholesterol 93 mg/dL (< 100); Triglycerides 89 mg/dL (< 150)
[2022-03-17] MEDS: ACCU-CHEK COMFORT CURVE STRIP VI SCH ×2 (17:46→22:16)
[2022-03-17] MEDS: InsuLIN REG 1unit/0.01ml Soln (100units/ml) SC SCH ×2 (17:52→23:23)
[2022-03-17] MEDS: ATORVASTATIN 20 MG TAB PO SCH (21:40)
[2022-03-17] MEDS: AMIODARONE HCL 200 MG TAB PO SCH (21:40)
[2022-03-17 23:30] VITALS: BP 145/93
[2022-03-17 23:38] VITALS: BP 150/105
[2022-03-18 05:46] LABS: Basophils # (auto) 0.1 10 ^3/uL (0-0.2); Basophils % (auto) 0.6 % (0.0-2.0); Eosinophils # (auto) 0.1 10 ^3/uL (0-0.8); Eosinophils % (auto) 1.5 % (0.0-7.0); Hematocrit 46.1 % (41.0-53.0); Hemoglobin 15.5 g/dL (13.5-17.5); Lymphocytes # (auto) 2.2 10 ^3/uL (0.4-5.4); Lymphocytes % (auto) 24.6 % (10.0-50.0); Mean Corpuscular Hemoglobin 30.1 pg (28.0-32.0); Mean Corpuscular Hgb Conc. 33.7 g/dL (32.0-36.0); Mean Corpuscular Volume 89.1 fL (80.0-100.0); Monocytes % (auto) 10.9 % (0.0-12.0); Neutrophils # (auto) 5.6 10 ^3/uL (1.6-8.6); Neutrophils % (auto) 62.4 % (37.0-80.0); Nucleated Red Blood Cells % 0.1 %; Red Blood Cells 5.17 10^6/uL (4.5-5.90); Red Cell Distribution Width 13.4 % (11.8-14.3); White Blood Cell 8.9 10^3/uL (4.4-10.8)
[2022-03-18] MEDS: ACCU-CHEK COMFORT CURVE STRIP VI SCH ×4 (05:49→21:35)
[2022-03-18 05:52] VITALS: BP 145/103
[2022-03-18] MEDS: InsuLIN REG 1unit/0.01ml Soln (100units/ml) SC SCH ×4 (06:05→21:38)
[2022-03-18 06:08] LABS: Potassium 3.8 mmol/L (3.5-5.1)
[2022-03-18 06:21] LABS: Albumin 3.7 g/dL (3.4-5.0); BUN/Creatinine Ratio 29.3; Bilirubin, Total 0.7 mg/dL (0.2-1.0); Calcium 8.4 mg/dL (8.5-10.1); Total Protein 6.7 g/dL (6.4-8.2)
[2022-03-18] MEDS: AMIODARONE HCL 200 MG TAB PO SCH (08:49)
[2022-03-18] MEDS: RIVAROXABAN 20 MG TAB PO SCH (08:49)
[2022-03-18 09:00] VITALS: BP 140/111
[2022-03-18] MEDS ORDERED: FUROSEMIDE 20 MG/2 ML VIAL IV SCH (10:00)
[2022-03-18] MEDS ORDERED: POTASSIUM CHL 10 Meq TABLET PO SCH (10:00)
[2022-03-18] MEDS ORDERED: ASPirin-EC 81 mg tab PO SCH (10:00)
[2022-03-18] MEDS ORDERED: DIGOXIN 0.125 MG TAB PO SCH (10:00)
[2022-03-18] MEDS ORDERED: ENOXAPARIN SOD 40 MG/0.4 ML SYRINGE SC SCH (10:00)
[2022-03-18] MEDS ORDERED: LISINOPRIL 10 MG TAB PO ONE (14:00)
[2022-03-18] MEDS ORDERED: METOPROLOL TARTRATE 50 MG TAB PO ONE (14:00)
[2022-03-18] MEDS ORDERED: LISI20TA28 PO (15:20)
[2022-03-18 17:26] VITALS: BP 126/96
[2022-03-18 19:38] LABS: Urine Bacteria NONE SEEN /hpf (None Seen); Urine Blood Negative /uL (Negative); Urine Hyaline Cast MANY /lpf (0 - 2); Urine Mucus MANY (None Seen); Urine Specific Gravity 1.031 (1.001-1.035); Urine WBC 2 /hpf (0 - 3)
[2022-03-18] MEDS: ATORVASTATIN 20 MG TAB PO SCH (21:34)
[2022-03-18] MEDS: METOPROLOL TARTRATE 50 MG TAB PO SCH (21:35)
[2022-03-18 22:00] VITALS: BP 131/99
[2022-03-19 05:00] VITALS: BP 125/97
[2022-03-19] MEDS: InsuLIN REG 1unit/0.01ml Soln (100units/ml) SC SCH ×2 (06:13→11:54)
[2022-03-19] MEDS: ACCU-CHEK COMFORT CURVE STRIP VI SCH ×2 (06:13→11:53)
[2022-03-19 06:58] LABS: Basophils # (auto) 0.1 10 ^3/uL (0-0.2); Basophils % (auto) 0.6 % (0.0-2.0); Eosinophils # (auto) 0.1 10 ^3/uL (0-0.8); Eosinophils % (auto) 1.5 % (0.0-7.0); Hematocrit 45.1 % (41.0-53.0); Lymphocytes # (auto) 2.4 10 ^3/uL (0.4-5.4); Lymphocytes % (auto) 26.5 % (10.0-50.0); Mean Corpuscular Hemoglobin 29.6 pg (28.0-32.0); Mean Corpuscular Hgb Conc. 33.2 g/dL (32.0-36.0); Mean Corpuscular Volume 89.4 fL (80.0-100.0); Monocytes # (auto) 0.9 10 ^3/uL (0-1.3); Monocytes % (auto) 10.1 % (0.0-12.0); Neutrophils # (auto) 5.6 10 ^3/uL (1.6-8.6); Neutrophils % (auto) 61.3 % (37.0-80.0); Nucleated Red Blood Cells % 0.1 %; Red Blood Cells 5.05 10^6/uL (4.5-5.90); Red Cell Distribution Width 13.2 % (11.8-14.3); White Blood Cell 9.2 10^3/uL (4.4-10.8)
[2022-03-19 07:14] LABS: Potassium 3.9 mmol/L (3.5-5.1)
[2022-03-19 07:20] LABS: BUN/Creatinine Ratio 26.8; Calcium 8.9 mg/dL (8.5-10.1)
[2022-03-19 08:35] VITALS: BP 128/100
[2022-03-19] MEDS: RIVAROXABAN 20 MG TAB PO SCH (09:54)
[2022-03-19] MEDS: METOPROLOL TARTRATE 50 MG TAB PO SCH (09:55)
[2022-03-19] MEDS ORDERED: DAPAGLIFLOZIN 5 MG TAB PO SCH (10:00)
[2022-03-19] MEDS ORDERED: LISINOPRIL 10 MG TAB PO SCH (10:00)
[2022-03-19] MEDS ORDERED: METO-6 PO (11:35)
[2022-03-19 12:00] VITALS: BP 116/89
[2022-03-19 12:17] VITALS: BP 116/89
== END 2022-03-19 13:00 | disposition home or self-care (01) | DRG 201 ==
LOC: ER 02:39 → TELE 16:02 → TELE-WESTW 18:05
PROVIDERS: ADMIT Registered Nurse; ATTEND Internal Medicine
DX: I48.91 Unspecified atrial fibrillation (principal); I50.33 Acute on chronic diastolic (congestive) heart failure; I21.A1 Myocardial infarction type 2; D68.69 Other thrombophilia; E11.65 Type 2 diabetes mellitus with hyperglycemia; E78.5 Hyperlipidemia, unspecified; I11.0 Hypertensive heart disease with heart failure; I25.10 Atherosclerotic heart disease of native coronary artery without angina pectoris; Z20.822 Contact with and (suspected) exposure to COVID-19
CPT/HCPCS: 36415; 71045; 80048; 80053; 80061; 81001; 82962; 83036; 83735; 83880; 84484; 85025; 87426; 93005; 93306; 96374; 96375; 99291; G0378; J1815; J2405

== ENCOUNTER → 2022-04-30 | Outpatient (CLI) | payer MEDICAID ==
[~2022-04-30] MED LIST changes: +LISI20TA28 PO
[2022-04-30 08:43] LABS: Albumin 3.7 g/dL (3.4-5.0); Bilirubin, Direct 0.4 mg/dL (0-0.2)
[2022-04-30 08:45] LABS: Bilirubin, Total 1.1 mg/dL (0.2-1.0); Total Protein 6.8 g/dL (6.4-8.2)
== END | disposition home or self-care (01) ==
LOC: LAB 07:55
PROVIDERS: ATTEND Internal Medicine
DX: E11.9 Type 2 diabetes mellitus without complications (principal); E78.5 Hyperlipidemia, unspecified
CPT/HCPCS: 36415; 80076

== ENCOUNTER 2022-05-07 15:05 | Inpatient (IN) | payer MEDICAID ==
[~2022-05-07] VITALS: Ht 165.1 cm; Wt 81.6 kg
[2022-05-07] MEDS ORDERED: dilTIAZem 25 MG/5 ML VIAL IV ONE (16:00)
[2022-05-07 16:15] LABS: Basophils # (auto) 0.1 10 ^3/uL (0-0.2); Basophils % (auto) 0.6 % (0.0-2.0); Eosinophils # (auto) 0.1 10 ^3/uL (0-0.8); Eosinophils % (auto) 1.7 % (0.0-7.0); Hematocrit 49.4 % (41.0-53.0); Hemoglobin 16.3 g/dL (13.5-17.5); Lymphocytes # (auto) 1.8 10 ^3/uL (0.4-5.4); Lymphocytes % (auto) 21.2 % (10.0-50.0); Mean Corpuscular Hgb Conc. 32.9 g/dL (32.0-36.0); Mean Corpuscular Volume 91.3 fL (80.0-100.0); Monocytes # (auto) 0.8 10 ^3/uL (0-1.3); Monocytes % (auto) 9.3 % (0.0-12.0); Neutrophils # (auto) 5.7 10 ^3/uL (1.6-8.6); Neutrophils % (auto) 67.2 % (37.0-80.0); Nucleated Red Blood Cells % 0.2 %; Red Blood Cells 5.41 10^6/uL (4.5-5.90); Red Cell Distribution Width 14.1 % (11.8-14.3); White Blood Cell 8.5 10^3/uL (4.4-10.8)
[2022-05-07] MEDS ORDERED: DIGOXIN (250MCG/ML) 2 ML AMPULE IV ONE (16:15)
[2022-05-07] MEDS ORDERED: dilTIAZem 125mg/125ml BAG KIT 125 ML IV ONE ×2 (16:15→17:00)
[2022-05-07 16:31] LABS: Calcium 8.9 mg/dL (8.5-10.1); Magnesium 2.3 mg/dL (1.6-2.6); Potassium 3.6 mmol/L (3.5-5.1)
[2022-05-07 16:35] LABS: BUN/Creatinine Ratio 24.1; Bilirubin, Total 0.8 mg/dL (0.2-1.0); Total Protein 6.9 g/dL (6.4-8.2)
[2022-05-07] MEDS ORDERED: ACETAMINOPHEN 325 MG TAB PO PRN (17:45)
[2022-05-07] MEDS ORDERED: NITROGLYCERIN 0.4 MG SL TAB SL PRN (17:45)
[2022-05-07] MEDS ORDERED: ONDANSETRON HCL 4 MG/2 ML VIAL IV PRN (17:45)
[2022-05-07] MEDS ORDERED: MORPHINE SULFATE INJ 2 MG/ml SYRG IV PRN (17:45)
[2022-05-07] MEDS ORDERED: DEXTROSE (50%) 50ML SYRG IV PRN (18:15)
[2022-05-07] MEDS ORDERED: FUROSEMIDE 20 MG/2 ML VIAL IV ONE (18:30)
[2022-05-07] MEDS: dilTIAZem 125mg/125ml BAG KIT 125 ML IV SCH (18:41)
[2022-05-07 19:16] LABS: Cholesterol 142 mg/dL (< 200); HDL Cholesterol 30 mg/dL (40-59); LDL Cholesterol 109 mg/dL (< 100); Triglycerides 90 mg/dL (< 150)
[2022-05-07] MEDS: ACCU-CHEK COMFORT CURVE STRIP VI SCH (22:00)
[2022-05-07] MEDS: SODIUM CHLOR 0.9% PF (SALINE LOCK) 10ML VIAL/SYR IV SCH (22:00)
[2022-05-07] MEDS: InsuLIN REG 1unit/0.01ml Soln (100units/ml) SC SCH (22:55)
[2022-05-07] MEDS: AMIODARONE HCL 200 MG TAB PO SCH (22:56)
[2022-05-07] MEDS: POTASSIUM CHL 20 Meq TABLET PO SCH (22:56)
[2022-05-07] MEDS: ATORVASTATIN 20 MG TAB PO SCH (22:57)
[2022-05-07] MEDS: METOPROLOL SUCCINATE XL 50 MG TAB PO SCH (22:59)
[2022-05-08 07:04] LABS: Albumin 3.6 g/dL (3.4-5.0); BUN/Creatinine Ratio 17.8; Calcium 8.9 mg/dL (8.5-10.1); Potassium 4.4 mmol/L (3.5-5.1)
[2022-05-08 07:06] LABS: Bilirubin, Total 0.8 mg/dL (0.2-1.0); Total Protein 6.6 g/dL (6.4-8.2)
[2022-05-08 07:11] LABS: Basophils # (auto) 0.1 10 ^3/uL (0-0.2); Basophils % (auto) 0.7 % (0.0-2.0); Eosinophils # (auto) 0.2 10 ^3/uL (0-0.8); Hematocrit 46.2 % (41.0-53.0); Hemoglobin 15.2 g/dL (13.5-17.5); Lymphocytes # (auto) 1.7 10 ^3/uL (0.4-5.4); Mean Corpuscular Hgb Conc. 32.9 g/dL (32.0-36.0); Mean Corpuscular Volume 91.2 fL (80.0-100.0); Monocytes # (auto) 0.8 10 ^3/uL (0-1.3); Monocytes % (auto) 9.2 % (0.0-12.0); Neutrophils # (auto) 5.8 10 ^3/uL (1.6-8.6); Neutrophils % (auto) 68.1 % (37.0-80.0); Nucleated Red Blood Cells % 0.1 %; Red Blood Cells 5.07 10^6/uL (4.5-5.90); Red Cell Distribution Width 13.6 % (11.8-14.3); White Blood Cell 8.5 10^3/uL (4.4-10.8)
[2022-05-08] MEDS: ACCU-CHEK COMFORT CURVE STRIP VI SCH ×3 (07:21→20:02)
[2022-05-08] MEDS: InsuLIN REG 1unit/0.01ml Soln (100units/ml) SC SCH ×4 (07:23→22:00)
[2022-05-08] MEDS: SODIUM CHLOR 0.9% PF (SALINE LOCK) 10ML VIAL/SYR IV SCH ×2 (07:39→14:32)
[2022-05-08] MEDS ORDERED: ASPirin-EC 81 mg tab PO SCH (10:00)
[2022-05-08] MEDS ORDERED: ENOXAPARIN SOD 40 MG/0.4 ML SYRINGE SC SCH (10:00)
[2022-05-08] MEDS: FUROSEMIDE 20 MG/2 ML VIAL IV SCH ×3 (10:35→20:17)
[2022-05-08] MEDS: RIVAROXABAN 20 MG TAB PO SCH (10:35)
[2022-05-08] MEDS: POTASSIUM CHL 20 Meq TABLET PO SCH (10:35)
[2022-05-08] MEDS: AMIODARONE HCL 200 MG TAB PO SCH (10:36)
[2022-05-08] MEDS: DIGOXIN 0.125 MG TAB PO SCH (10:36)
[2022-05-08] MEDS: METOPROLOL SUCCINATE XL 50 MG TAB PO SCH (10:37)
[2022-05-08] MEDS: dilTIAZem 125mg/125ml BAG KIT 125 ML IV SCH (11:01)
[2022-05-08] MEDS ORDERED: DAPAGLIFLOZIN 5 MG TAB PO ONE (12:30)
[2022-05-08] MEDS ORDERED: EMPAGLIFLOZIN 10 MG TAB PO ONE (14:45)
[2022-05-08 17:08] VITALS: BP 105/84
[2022-05-08 18:52] VITALS: BP 105/84
[2022-05-08 22:00] VITALS: BP 119/95
[2022-05-09] MEDS: SODIUM CHLOR 0.9% PF (SALINE LOCK) 10ML VIAL/SYR IV SCH ×4 (00:12→22:35)
[2022-05-09] MEDS: ACCU-CHEK COMFORT CURVE STRIP VI SCH ×5 (00:14→22:35)
[2022-05-09] MEDS: AMIODARONE HCL 200 MG TAB PO SCH ×3 (00:37→22:40)
[2022-05-09] MEDS: ATORVASTATIN 20 MG TAB PO SCH ×2 (00:38→22:40)
[2022-05-09] MEDS: POTASSIUM CHL 20 Meq TABLET PO SCH ×3 (00:38→22:40)
[2022-05-09] MEDS: SACUBITRIL-VALSARTAN 24mg/26mg TAB PO SCH ×3 (00:38→22:57)
[2022-05-09] MEDS: METOPROLOL SUCCINATE XL 50 MG TAB PO SCH ×3 (00:39→22:57)
[2022-05-09 05:00] VITALS: BP 124/85
[2022-05-09] MEDS: InsuLIN REG 1unit/0.01ml Soln (100units/ml) SC SCH ×4 (06:13→22:59)
[2022-05-09] MEDS: FUROSEMIDE 20 MG/2 ML VIAL IV SCH ×2 (06:14→17:57)
[2022-05-09 07:12] LABS: BUN/Creatinine Ratio 32.1; Calcium 8.5 mg/dL (8.5-10.1); Magnesium 2.2 mg/dL (1.6-2.6); Potassium 3.8 mmol/L (3.5-5.1)
[2022-05-09 08:00] VITALS: BP 127/94
[2022-05-09] MEDS: DIGOXIN 0.125 MG TAB PO SCH (09:23)
[2022-05-09] MEDS: RIVAROXABAN 20 MG TAB PO SCH (09:24)
[2022-05-09] MEDS: EMPAGLIFLOZIN 10 MG TAB PO SCH (09:25)
[2022-05-09 09:40] VITALS: BP 127/94
[2022-05-09 13:05] VITALS: BP 118/93
[2022-05-09 16:46] VITALS: BP 143/101
[2022-05-09 22:00] VITALS: BP 133/94
[2022-05-10 05:00] VITALS: BP 130/91
[2022-05-10] MEDS: ACCU-CHEK COMFORT CURVE STRIP VI SCH (05:47)
[2022-05-10] MEDS: InsuLIN REG 1unit/0.01ml Soln (100units/ml) SC SCH (05:47)
[2022-05-10] MEDS: SODIUM CHLOR 0.9% PF (SALINE LOCK) 10ML VIAL/SYR IV SCH (05:47)
[2022-05-10] MEDS: FUROSEMIDE 20 MG/2 ML VIAL IV SCH (05:56)
[2022-05-10 09:00] VITALS: BP 137/82
[2022-05-10] MEDS: EMPAGLIFLOZIN 10 MG TAB PO SCH (10:14)
[2022-05-10] MEDS: SACUBITRIL-VALSARTAN 24mg/26mg TAB PO SCH (10:14)
[2022-05-10] MEDS: POTASSIUM CHL 20 Meq TABLET PO SCH (10:14)
[2022-05-10] MEDS: AMIODARONE HCL 200 MG TAB PO SCH (10:14)
[2022-05-10] MEDS: RIVAROXABAN 20 MG TAB PO SCH (10:15)
[2022-05-10] MEDS: DIGOXIN 0.125 MG TAB PO SCH (10:15)
[2022-05-10] MEDS: METOPROLOL SUCCINATE XL 50 MG TAB PO SCH (10:15)
[2022-05-10] MEDS ORDERED: FURO1TAB31 PO (10:58)
[2022-05-10 11:02] VITALS: BP 148/87
== END 2022-05-10 11:30 | disposition home or self-care (01) | DRG 201 ==
LOC: ER 15:05 → TELE 17:46 → TELE-WESTW 05-08 15:40
PROVIDERS: ADMIT Nurse Practitioner Family; ATTEND Internal Medicine
DX: I48.91 Unspecified atrial fibrillation (principal); I50.43 Acute on chronic combined systolic (congestive) and diastolic (congestive) heart failure; J81.0 Acute pulmonary edema; I42.8 Other cardiomyopathies; Z20.822 Contact with and (suspected) exposure to COVID-19; E11.9 Type 2 diabetes mellitus without complications; E78.5 Hyperlipidemia, unspecified; I11.0 Hypertensive heart disease with heart failure; E66.9 Obesity, unspecified; I48.20 Chronic atrial fibrillation, unspecified; Z79.84 Long term (current) use of oral hypoglycemic drugs; Z83.3 Family history of diabetes mellitus; Z68.29 Body mass index [BMI] 29.0-29.9, adult
CPT/HCPCS: 36415; 71045; 80048; 80053; 80061; 80162; 82962; 83036; 83605; 83735; 83880; 84443; 84484; 85025; 85379; 87426; 93005; 93306; 93970; 96365; 96375; 96376; G0378; J1815

== ENCOUNTER 2025-05-15 13:21 | Outpatient (CLI) | payer MEDICAID ==
[~2025-05-15 13:21] MED LIST changes: +FURO1TAB31 PO; -FURO1TAB33 PO; -LISI20TA28 PO; +LISI20TA56 PO
--- NOTE | 2025-05-17 17:24 | DVHSR ---
APPROVED REPORT EXAM: Two-dimensional and M-mode echocardiogram with Doppler and color Doppler. INDICATION Heart Failure DIMENSIONS LVDd 5.4 (3.8-5.7cm) LA (2D) 4.4 (1.9-4.0cm) Aortic Root 3.8 (2.0-3.7cm) LVDs 4.3 (2.5-4.0cm) LA (MM) (1.9-4.0cm) Aortic Cusp Exc 1.4 (1.5-2.0cm) EF (%) 43.0 (55-70%) Rt. Atrium 4.3 (1.9-4.0cm) Asc. Aorta cm IVSd 1.2 (0.7-1.1cm) RV (D) (1.8-2.4cm) PWd 1.2 (0.7-1.1cm) Mitral Valve Mitral Mitral Stenosis E wave 1.22m/s MV Mean GR. 76mmHg A wave m/s MV Peak GR. 114mmHg E/A ratio 0.0 2D MVA cm2 Aortic Valve Aortic Valve Aortic Stenosis V1 0.82m/s AO Mean GR. 3mmHg V2 1.09m/s AO Peak GR. 5mmHg LVOT Diameter 2.1 (1.8-2.4cm) Doppler SY[place] 2.60cm2 Pulmonic Valve V2 0.63m/s Tricuspid Valve TR Velocity 2.53m/s RVSP 29mmHg Conclusion Technically good study. Atrial fibrillation. Biatrial enlargement with concentric LVH of moderate degree. RV enlargement. Mild thickening of the anterior and posterior mitral leaflets. The aortic leaflets appear to be within normal limits. The tricuspid and pulmonic normal. Left ventricular systolic function is diminished. EF is approximately 20-25% with global hypokinesis and irregular contractility secondary to atrial fibrillation. RV function is moderately diminished. There is moderate pulmonic insufficiency with moderate to severe mitral insufficiency. No pericardial effusion masses or vegetations.
== END 2025-05-15 17:00 | disposition home or self-care (01) ==
LOC: XYW 13:21
PROVIDERS: ATTEND Internal Medicine
DX: I50.42 Chronic combined systolic (congestive) and diastolic (congestive) heart failure (principal)
CPT/HCPCS: 93306